=== PATIENT | male | born 1980 | race African-American/Black ===

== ENCOUNTER 2021-10-31 17:51 | Emergency (ER) | payer OTHER ==
[~2021-10-31 17:51] MED LIST: PHENERGAN25 M1 PO; VENTOLIN HFA18 GM INH
[2021-10-31] MEDS ORDERED: VENTOLIN HFA IN18 GM INH (20:41)
[2021-10-31] MEDS ORDERED: MEDROL 4MG DOSEP4 MG PO (20:41)
== END 2021-10-31 20:49 | disposition home or self-care (01) ==
LOC: FER 17:51
DX: R05.9 Cough, unspecified (principal); Z20.822 Contact with and (suspected) exposure to COVID-19; Z88.0 Allergy status to penicillin
CPT/HCPCS: 99283; U0002

== ENCOUNTER 2021-12-11 18:07 | Emergency (ER) | payer OTHER ==
[~2021-12-11 18:07] MED LIST changes: +MEDROL 4MG DOSEP4 MG PO; +VENTOLIN HFA IN18 GM INH
== END 2021-12-11 20:25 | disposition home or self-care (01) ==
LOC: FER 18:07
DX: S63.610A Unspecified sprain of right index finger, initial encounter (principal); F17.210 Nicotine dependence, cigarettes, uncomplicated; Z88.1 Allergy status to other antibiotic agents; X58.XXXA Exposure to other specified factors, initial encounter; Y92.009 Unspecified place in unspecified non-institutional (private) residence as the place of occurrence of the external cause
CPT/HCPCS: 73140